=== PATIENT | female | born 1960 | race Caucasian/White ===

== ENCOUNTER 2019-06-08 13:52 | Emergency (ER) | payer MEDICAID ==
--- NOTE | 2019-06-08 15:03 | XRAY ---
Indication: Bilateral rib pain following recent Heimlich maneuver. Comparison: None 2 views of the left and right ribs demonstrates nondisplaced right 5/6 lateral and nondisplaced left 6/7 anterior lateral acute rib fractures. Elsewhere old right 3 rib fracture, old left 7 rib fracture, and osteopenia. No hemothorax or pneumothorax. Lungs are hyperinflated with right apical fibrosis/scarring. Heart is not enlarged. Impression: 1. Nondisplaced acute bilateral rib fractures as detailed. 2. Osteopenia and old bilateral rib fractures. 3. COPD and right apical fibrosis/scarring.
[2019-06-08] MEDS ORDERED: Lidoderm Patch 5% TOP STA (15:36)
[2019-06-08] MEDS ORDERED: ULTRAM 50 MG PO ONE (15:36)
[2019-06-08] MEDS ORDERED: ULTRAM 50 MG ONE (15:47)
[2019-06-08 16:14] VITALS: BP 138/85; PULSE 76; O2SAT 95
--- NOTE | 2019-06-08 16:30 | ERPHSYRPT ---
- History of Present Illness Source: patient Exam Limitations: no limitations Patient Subjective Stated Complaint: Patient took Aleve 2 PO at 1000 with no relief. Triage Nursing Assessment: Patient ambulated into ED and transferred self to bed. Patient A+O X 3. Patient's skin pink, warm and dry. Patient complains of right sided rib and back pain since Thursday. Patient states she choked on food on Thursday causing her son to do the heimleich on her. Patient's lungs clear a/p jaspreet. Patient denies SOB. Physician History: Pt is a 59 y/o female that her son had to perform the heimlich maneuver on her, because she chocked on some food. The maneuver was succesful, but pt developed severe b/l back pain in her ribs area. As OTC pain meds did not help, she came to the ER. Timing/Duration: day(s) Method of Injury: other (Heimlich Maneuver) Quality: sharp, stabbing Back Pain Location: T-spine (the ribs area) Severity of Pain-Max: moderate Severity of Pain-Current: moderate Modifying Factors: Improves With: pain medication Associated Symptoms: denies symptoms Previous symptoms: no prior history Allergies/Adverse Reactions: No Known Drug Allergies Allergy (Unverified 06/08/19 14:00) Hx Influenza Vaccination/Date Given: Yes Hx Pneumococcal Vaccination/Date Given: No Immunizations Up to Date: Yes - Review of Systems Constitutional: No Fever, No Chills Eyes: No Symptoms Ears, Nose, & Throat: No Symptoms Respiratory: No Cough, No Dyspnea Cardiac: No Chest Pain, No Edema, No Syncope Abdominal/Gastrointestinal: No Abdominal Pain, No Nausea, No Vomiting, No Diarrhea Genitourinary Symptoms: No Dysuria Musculoskeletal: Back Pain (at the ribs area.) Neurological: No Dizziness, No Focal Weakness, No Sensory Changes - Past Medical History Neurological History: No Pertinent History ENT History: No Pertinent History Cardiac History: Hypertension Respiratory History: COPD Endocrine Medical History: No Pertinent History Musculoskeletal History: No Pertinent History GI Medical History: No Pertinent History History: No Pertinent History Psycho-Social History: Anxiety Female Reproductive Disorders: No Pertinent History - Past Surgical History Past Surgical History: No Neuro Surgical History: No Pertinent History Cardiac: No Pertinent History Respiratory: No Pertinent History Gastrointestinal: No Pertinent History Genitourinary: No Pertinent History Musculoskeletal: No Pertinent History Female Surgical History: No Pertinent History - Social History Smoking Status: Current every day smoker How long have you smoked: years Exposure to second hand smoke: Yes Drug Use: none Patient Lives Alone: No - Female History Hx Last Menstrual Period: menopausal Hx Now: No - Nursing Vital Signs Nursing Vital Signs: Initial Vital Signs Temperature 98.4 F 06/08/19 14:02 Pulse Rate 73 06/08/19 14:02 Respiratory Rate 18 06/08/19 14:02 Blood Pressure 123/81 06/08/19 14:02 O2 Sat by Pulse Oximetry 98 06/08/19 14:02 Pain Scale Pain Intensity 8 - Physical Exam General Appearance: moderate distress Eye Exam: PERRL/EOMI, eyes nml inspection Ears, Nose, Throat Exam: normal ENT inspection Neck Exam: normal inspection, non-tender, supple, full range of motion, No meningismus, No midline tenderness Respiratory Exam: normal breath sounds, lungs clear, other (tenderness of the thoracic area, b/l ribs), No respiratory distress Cardiovascular Exam: regular rate/rhythm, normal heart sounds Gastrointestinal Exam: soft, No tenderness, No mass Back Exam: decreased range of motion, other (pt is taking shallow breaths, secondary to pain.) Extremity Exam: normal inspection, normal range of motion, No calf tenderness, No pedal edema Neurologic Exam: alert, oriented x 3, cooperative, director of market intelligence II-XII nml as tested, normal mood/affect, nml station & gait, sensation nml, No motor deficits SpO2: 95 - Course Nursing assessment & vital signs reviewed: Yes - Radiology Exams Ribs X-ray Interpretation: Reviewed by me (non displaced R 5/6 lateral and non displaced L 6/7 anterior rib fractures.) Ordered Tests: Active Orders 24 hr Category Date Time Status RIBS BILATERAL INCLUDE PA CXR Stat Exams 06/08/19 14:44 Completed Medication Summary Discontinued Medications Generic Name Dose Route Start Last Admin Trade Name Freq PRN Reason Stop Dose Admin Lidocaine 1 patch 06/08/19 15:36 06/08/19 15:49 Lidoderm Patch 5% TOP 06/08/19 15:37 1 patch ONCE STA Administration Tramadol HCl 100 mg 06/08/19 15:36 06/08/19 15:49 Ultram 50 Mg PO 06/08/19 15:37 100 mg STAT ONE Administration Tramadol HCl Confirm 06/08/19 15:47 Ultram 50 Mg Administered 06/08/19 15:48 Dose 100 mg .ROUTE .STK-MED ONE - Progress Progress: improved Progress Note: 06/08/19 16:33 Pt was seen and examined. I ordered for her Tramadol 100mg PO and Lidocaine patch that was cut and placed on painful areas. Pt is feeling better, and is cleared for d/c. Pt should f/u with her PCP, and make sure to take deep breaths , to prevent PNA. Will see patient in: office Counseled pt/family regarding: need for follow-up - Departure Departure Disposition: Home Clinical Impression: Rib fractures Condition: Stable Critical Care Time: No Referrals: [facility], [facility] [Primary Care Provider] - Instructions: Bruised Rib Additional Instructions: Take meds as ordered. F/U with PCP, and take deep breaths. Prescriptions: Lidocaine HCl 5% Patch [Lidoderm Patch 5%] 1 patch TOP DAILY #30 patch Tramadol HCl 50 - 100 mg PO Q4-6HPRN PRN #30 tablet PRN Reason: Pain
== END 2019-06-08 16:47 | disposition home or self-care (01) ==
LOC: ED 13:52
DX: S22.39XA Fracture of one rib, unspecified side, initial encounter for closed fracture (principal); X50.3XXA Overexertion from repetitive movements, initial encounter; M54.9 Dorsalgia, unspecified; I10 Essential (primary) hypertension; J44.9 Chronic obstructive pulmonary disease, unspecified; F41.9 Anxiety disorder, unspecified
CPT/HCPCS: 71111; 99283; A9270-GY

== ENCOUNTER 2021-05-14 05:40 | Emergency (ER) | payer MEDICAID ==
--- NOTE | 2021-05-14 06:10 | ERPHSYRPT ---
<DURGA JETT SravaniKatherine - Last Filed: 05/14/21 06:57> - History of Present Illness Time Seen by Provider: 05/14/21 06:00 Historian: patient, family Exam Limitations: no limitations Patient Subjective Stated Complaint: pt c/o chest pain x3 days off and on Triage Nursing Assessment: pt c/o chest pain x3 days, intermittently. Pt c/o pain under lt breast, across chest into neck, down left arm and into back. States, "It feels like something heavy on my chest and I'm sob". Pt left work Thursday early due to not feeling good and stayed in bed and rested most of Thursday. Pt states, "I was unable to sleep last night, couldn't get comfortable". Physician History: This is a 61-year-old white female with a history of anxiety and hypertension who presents with left-sided chest pain that radiates up into her left neck and down her left arm and into her left back. Symptoms have been present intermi ttently for 3 days. Patient did take 1 baby aspirin prior to arrival. She is never been diagnosed with any cardiac problems. However there has been some concern per patient. Patient continues to smoke cigarettes daily. Does complain of some shortness of breath and a cough. Patient had symptoms like this in the past and she was diagnosed with a pneumonia per her report. She denies fevers and chills. She denies abdominal pain. Timing/Duration: day(s) (3), intermittent, worse Activities at Onset: none Quality: pressure Location: other (Left chest under her breast) Chest Pain Radiation: neck, arm, back Severity of Pain-Max: moderate Modifying Factors: Improves With: coughing (Mild) Associated Symptoms: shortness of breath, cough, No chills, No fever, No weakness Nitro Today/Relief: no nitro taken today Aspirin Treatment Today: 81 mg x 1, provided at home Allergies/Adverse Reactions: No Known Drug Allergies Allergy (Verified 05/14/21 05:58) Home Medications: Amlodipine Besylate 10 mg PO DAILY 05/14/21 [History] Aspirin 81 gm Chew [Baby Aspirin 81 mg Chew] 81 mg PO DAILY 05/14/21 [History] OXcarbazepine [Trileptal] 450 mg PO BID 05/14/21 [History] clonazePAM [Klonopin] 0.5 mg PO TID PRN PRN 05/14/21 [History] lisinopriL [Lisinopril] 10 mg PO DAILY 05/14/21 [History] Hx Tetanus, Diphtheria Vaccination/Date Given: Yes Hx Influenza Vaccination/Date Given: Yes Hx Pneumococcal Vaccination/Date Given: No Immunizations Up to Date: Yes Travel Risk - International Travel Have you traveled outside of the country in past 3 weeks: No - Coronavirus Screening Are you exhibiting any of the following symptoms?: No Close contact with a COVID-19 positive Pt in past 14-21 Days: No - Vaccine Status Have you recieved a Covid-19 vaccination: No - Review of Systems Constitutional: No Symptoms Eyes: No Symptoms Ears, Nose, & Throat: No Symptoms Respiratory: Cough, Dyspnea Cardiac: Chest Pain Abdominal/Gastrointestinal: No Symptoms Genitourinary Symptoms: No Symptoms Musculoskeletal: No Symptoms Skin: No Symptoms Neurological: No Symptoms Psychological: No Symptoms Endocrine: No Symptoms Hematologic/Lymphatic: No Symptoms Immunological/Allergic: No Symptoms All Other Systems: Reviewed and Negative - Past Medical History Pertinent Past Medical History: Yes Neurological History: No Pertinent History ENT History: No Pertinent History Cardiac History: Hypertension Respiratory History: COPD, Pneumonia Endocrine Medical History: No Pertinent History Musculoskeletal History: No Pertinent History GI Medical History: No Pertinent History History: No Pertinent History Psycho-Social History: Anxiety, Depression Female Reproductive Disorders: No Pertinent History - Past Surgical History Past Surgical History: No Neuro Surgical History: No Pertinent History Cardiac: No Pertinent History Respiratory: No Pertinent History Gastrointestinal: No Pertinent History Genitourinary: No Pertinent History Musculoskeletal: No Pertinent History Female Surgical History: No Pertinent History - Social History Smoking Status: Current every day smoker How long have you smoked: 48 yrs Exposure to second hand smoke: Yes Drug Use: none Patient Lives Alone: No - Female History Hx Now: No - Physical Exam General Appearance: no apparent distress, alert, anxiety Eye Exam: PERRL/EOMI, eyes nml inspection Ears, Nose, Throat Exam: normal ENT inspection, moist mucous membranes Neck Exam: normal inspection, non-tender, supple, full range of motion Respiratory Exam: normal breath sounds, lungs clear, airway intact, No chest tenderness, No respiratory distress Cardiovascular Exam: regular rate/rhythm, normal heart sounds, normal peripheral pulses Gastrointestinal/Abdomen Exam: soft, normal bowel sounds, No tenderness Pelvic Exam: not done Rectal Exam: not done Back Exam: normal inspection, normal range of motion, No CVA tenderness, No vertebral tenderness Extremity Exam: normal inspection, normal range of motion, pelvis stable Neurologic Exam: alert, oriented x 3, cooperative, lehr cutter II-XII nml as tested, normal mood/affect, nml cerebellar function, nml station & gait, sensation nml Skin Exam: normal color, warm, dry Lymphatic Exam: No adenopathy SpO2 Interpretation: normal SpO2: 95 O2 Delivery: Room Air - Course Nursing assessment & vital signs reviewed: Yes EKG Interpreted by Me: RATE (79), Sinus Rhythm, NORMAL AXIS, NORMAL INTERVALS, NORMAL QRS, Other (A few PVCs. No acute ischemic changes. No comparison EKG a vailable) - Progress Progress: improved Air Movement: good Progress Note: 05/14/21 06:57 Transfer of care to Dr. Gerson Orantes at shift change. I reviewed the patient history, condition, pending labs and x-rays to be followed up on. He accepts the patient for further management and final disposition. Blood Culture(s) Obtained: No Antibiotics given: No Counseled pt/family regarding: lab results, diagnosis, need for follow-up, rad results - Departure Departure Disposition: Home Clinical Impression: Chest pain, Shortness of breath, Hilar lymphadenopathy, COPD exacerbation, ACS (acute coronary syndrome), Elevated d-dimer, Leukocytosis, Hypoxia, Hyperglycemia, Hyponatremia Condition: Stable Critical Care Time: No Referrals: [facility] [Primary Care Provider] - Instructions: Chronic Obstructive Pulmonary Disease <GERSON ORANTES - Last Filed: 05/14/21 11:03> - Nursing Vital Signs Nursing Vital Signs: Initial Vital Signs Temperature 97.7 F 05/14/21 05:41 Pulse Rate 76 05/14/21 05:41 Respiratory Rate 22 05/14/21 05:41 Blood Pressure 184/95 05/14/21 05:41 O2 Sat by Pulse Oximetry 95 05/14/21 05:41 Pain Scale Pain Intensity 2 - Radiology Exams Chest X-ray Interpretation: Teleradiologist Report (Nonacute hyperinflated lungs) - CT Exams Chest CT Interpretation: Tele-radiologist Report (Negative pulmonary embolism. No acute cardiopulmonary abnormalities. Incidental pulmonary emphysema, apical subpleural cystic changes, and right middle lobe pleural-parenchymal scarring/t hickening.) Ordered Tests: Active Orders 24 hr Category Date Time Status EKG-ER Only STAT Care 05/14/21 06:25 Active IV Insertion STAT Care 05/14/21 06:25 Active Pulse Oximetry (ED) STAT Care 05/14/21 06:25 Active CHEST 1 VIEW (PORTABLE) Stat Exams 05/14/21 06:26 Completed CHEST WITH CONTRAST [CT] Stat Exams 05/14/21 06:56 Completed BLOOD CULTURE Stat Lab 05/14/21 09:32 Received CBC W DIFF Stat Lab 05/14/21 05:45 Completed CMP Stat Lab 05/14/21 05:45 Completed D-DIMER QUANTITATIVE Stat Lab 05/14/21 05:45 Completed NT PRO BNP Stat Lab 05/14/21 05:45 Completed PROTIME WITH INR Stat Lab 05/14/21 05:45 Completed TROPONIN Q3H Lab 05/14/21 05:45 Completed TROPONIN Q3H Lab 05/14/21 09:25 Completed TROPONIN Q3H Lab 05/14/21 12:30 Ordered TROPONIN Q3H Lab 05/14/21 15:30 Ordered TROPONIN Q3H Lab 05/14/21 18:30 Ordered Respiratory Therapy Assessment DAILY RT 05/14/21 09:39 Active Transfer Order Routine Transfer 05/14/21 Ordered Medication Summary Discontinued Medications Generic Name Dose Route Start Last Admin Trade Name Freq PRN Reason Stop Dose Admin Albuterol/Ipratropium 3 ml 05/14/21 09:12 05/14/21 09:37 Duoneb 0.5-3 Mg/3 Ml Neb IH 05/14/21 09:13 3 ml STAT ONE Administration Albuterol/Ipratropium Confirm 05/14/21 09:25 Duoneb 0.5-3 Mg/3 Ml Neb Administered 05/14/21 09:26 Dose 3 ml IH .STK-MED ONE Aspirin 243 mg 05/14/21 06:25 05/14/21 06:34 Baby Aspirin 81 Mg Chew PO 05/14/21 06:26 243 mg STAT ONE Administration Ceftriaxone Sodium/Dextrose 2 g in 50 mls @ 100 mls/hr 05/14/21 09:19 05/14/21 10:11 Rocephin 2 Gm-D5w 50ml Bag IV 05/14/21 09:48 Infused STAT STA Infusion Azithromycin 500 mg in 250 mls @ 250 mls/hr 05/14/21 09:20 05/14/21 10:36 Zithromax 500 Mg/ 250 Ml Nacl Premix IV 05/14/21 10:19 Infused STAT STA Infusion Ceftriaxone Sodium/Dextrose Confirm 05/14/21 09:21 Rocephin 2 Gm-D5w 50ml Bag Administered 05/14/21 09:22 Dose 2 g in 50 mls @ ud IV .STK-MED ONE Azithromycin Confirm 05/14/21 09:27 Zithromax 500 Mg/ 250 Ml Nacl Premix Administered 05/14/21 09:28 Dose 500 mg in 250 mls @ ud IV .STK-MED ONE Methylprednisolone Sodium Succinate 125 mg 05/14/21 09:12 05/14/21 09:23 Solu-Medrol 125 Mg IV 05/14/21 09:13 125 mg STAT ONE Administration Methylprednisolone Sodium Succinate Confirm 05/14/21 09:21 Solu-Medrol 125 Mg Administered 05/14/21 09:22 Dose 125 mg .ROUTE .STK-MED ONE Morphine Sulfate 2 mg 05/14/21 06:25 05/14/21 06:36 Morphine Sulfate 2 Mg Inj IV 05/14/21 06:26 2 mg STAT ONE Administration Morphine Sulfate Confirm 05/14/21 06:36 Morphine Sulfate 2 Mg Inj Administered 05/14/21 06:37 Dose 2 mg .ROUTE .STK-MED ONE Nitroglycerin 0.4 mg 05/14/21 06:25 05/14/21 06:34 Nitrostat 0.4 Mg (Ed) SL 05/14/21 06:26 0.4 mg STAT ONE Administration Ondansetron HCl 4 mg 05/14/21 06:25 05/14/21 06:36 Zofran 4 Mg/2 Ml Vial IV 05/14/21 06:26 4 mg STAT ONE Administration Ondansetron HCl Confirm 05/14/21 06:35 Zofran 4 Mg/2 Ml Vial Administered 05/14/21 06:36 Dose 4 mg .ROUTE .STK-MED ONE Lab/Rad Data: Laboratory Result Diagrams 05/14/21 05:45 05/14/21 05:45 Laboratory Results 05/14/21 05/14/21 05/14/21 Range/Units 09:25 09:19 05:45 WBC (4.0-10.5) K/mm3 RBC (4.1-5.4) M/mm3 Hgb (12.0-16.0) gm/dl Hct (35-47) % MCV (78-100) fl MCH (26-32) pg MCHC (32-36) g/dl RDW (11.5-14.0) % Plt Count (150-450) K/mm3 MPV (7.5-11.0) fl Gran % (36.0-66.0) % Eos # (Auto) (0-0.5) Absolute Lymphs (auto) (1.0-4.6) Absolute Monos (auto) (0.0-1.3) Lymphocytes % (24.0-44.0) % Monocytes % (0.0-12.0) % Eosinophils % (0.00-5.0) % Basophils % (0.0-0.4) % Absolute Granulocytes (1.4-6.9) Basophils # (0-0.4) PT (9.4-12.5) SECONDS INR (0.8-3.0) D-Dimer (215-500) ng/mL Sodium (137-145) mmol/L Potassium (3.5-5.1) mmol/L Chloride (98-107) mmol/L Carbon Dioxide (22-30) mmol/L Anion Gap (5-15) MEQ/L BUN (7-17) mg/dL Creatinine (0.52-1.04) mg/dL Estimated GFR ML/MIN Glucose (74-106) mg/dL Calcium (8.4-10.2) mg/dL Total Bilirubin (0.2-1.3) mg/dL AST (14-36) U/L ALT (0-35) U/L Alkaline Phosphatase (38-126) U/L Troponin I < 0.012 < 0.012 (0.000-0.034) ng/mL NT-Pro-B Natriuret Pep (0-900) pg/mL Serum Total Protein (6.3-8.2) g/dL Albumin (3.5-5.0) g/dL SARS-CoV-2 (PCR) NEGATIVE (NEGATIVE) 05/14/21 05/14/21 05/14/21 Range/Units 05:45 05:45 05:45 WBC 10.6 H (4.0-10.5) K/mm3 RBC 5.14 (4.1-5.4) M/mm3 Hgb 15.9 (12.0-16.0) gm/dl Hct 48.3 H (35-47) % MCV 94.0 (78-100) fl MCH 30.9 (26-32) pg MCHC 32.9 (32-36) g/dl RDW 13.1 (11.5-14.0) % Plt Count 344 (150-450) K/mm3 MPV 9.2 (7.5-11.0) fl Gran % 70.4 H (36.0-66.0) % Eos # (Auto) 0.05 (0-0.5) Absolute Lymphs (auto) 2.44 (1.0-4.6) Absolute Monos (auto) 0.61 (0.0-1.3) Lymphocytes % 23.0 L (24.0-44.0) % Monocytes % 5.8 (0.0-12.0) % Eosinophils % 0.5 (0.00-5.0) % Basophils % 0.3 (0.0-0.4) % Absolute Granulocytes 7.46 H (1.4-6.9) Basophils # 0.03 (0-0.4) PT 11.8 (9.4-12.5) SECONDS INR 1.00 (0.8-3.0) D-Dimer 1053 H* (215-500) ng/mL Sodium 131 L (137-145) mmol/L Potassium 3.9 (3.5-5.1) mmol/L Chloride 93 L (98-107) mmol/L Carbon Dioxide 29 (22-30) mmol/L Anion Gap 13.2 (5-15) MEQ/L BUN 12 (7-17) mg/dL Creatinine 0.58 (0.52-1.04) mg/dL Estimated GFR > 60.0 ML/MIN Glucose 176 H (74-106) mg/dL Calcium 10.0 (8.4-10.2) mg/dL Total Bilirubin 0.30 (0.2-1.3) mg/dL AST 26 (14-36) U/L ALT 17 (0-35) U/L Alkaline Phosphatase 93 (38-126) U/L Troponin I (0.000-0.034) ng/mL NT-Pro-B Natriuret Pep 196 (0-900) pg/mL Serum Total Protein 7.8 (6.3-8.2) g/dL Albumin 4.5 (3.5-5.0) g/dL SARS-CoV-2 (PCR) (NEGATIVE) - Progress Progress Note: Patient is a 61-year-old female presents to our ED with complaints of chest pain x3 days. Patient initially seen by Dr. Jett. Patient endorsed to Dr. Orantes at approximately 7 AM. Patient assessed. Patient appears to be resting comfortably. Vitals stable. Physical exam essentially unremarkable. Work-up revealed elevated D-dimer. CTA chest negative for PE. Patient has a history of COPD. RN observed hypoxia while walking to bathroom. Patient states she feels much better at this time. No chest pain while resting. We will admit for acute coronary syndrome work-up as well as treatment for COPD exacerbation. Dr. Carrillo is our no doc for today. He accepts admission to observation. Covid test pending. Initial troponin negative. Blood cultures added. Duo nebulizer treatment ordered. 2 g Rocephin and 500 mg of azithromycin ordered as well. Plan of care discussed with patient. She agrees to admission at [facility] for further evaluation and treatment. 05/14/21 09:22 05/14/21 11:02 Patient reassessed. She feels well. Patient tolerated her breakfast this morning in the ED. Case discussed with who accepts admission to observation. Covid test negative. Patient agrees to admission at [facility] for further evaluation and treatment. Abdomen orders placed. Patient voices no other complaints concerns at this time.
[2021-05-14] MEDS ORDERED: Zofran 4 MG/2 ML VIAL IV ONE (06:25)
[2021-05-14] MEDS ORDERED: BABY ASPIRIN 81 MG CHEW PO ONE (06:25)
[2021-05-14] MEDS ORDERED: MORPHINE SULFATE 2 MG INJ IV ONE (06:25)
[2021-05-14] MEDS ORDERED: Nitrostat 0.4 MG (ED) SL ONE (06:25)
[2021-05-14] MEDS ORDERED: Zofran 4 MG/2 ML VIAL ONE (06:35)
[2021-05-14] MEDS ORDERED: MORPHINE SULFATE 2 MG INJ ONE (06:36)
[2021-05-14 06:40] LABS: Absolute Neutrophil Ct (ANC) 7.46 (1.4-6.9); BASOPHIL % 0.3 % (0.0-0.4); Basophil (Absolute #) 0.03 (0-0.4); Eosinophil % 0.5 % (0.00-5.0); Eosinophil (Absolute #) 0.05 (0-0.5); Hematocrit 48.3 % (35-47); Hemoglobin 15.9 gm/dl (12.0-16.0); Lymphocyte (Absolute #) 2.44 (1.0-4.6); Mean Corpuscular Hemoglobin 30.9 pg (26-32); Mean Corpuscular Hgb Concent. 32.9 g/dl (32-36); Mean Platelet Volume 9.2 fl (7.5-11.0); Monocyte (Absolute #) 0.61 (0.0-1.3); Monocytes % 5.8 % (0.0-12.0); Neutrophil % 70.4 % (36.0-66.0); Platelet Count 344 K/mm3 (150-450); Red Blood Count 5.14 M/mm3 (4.1-5.4); Red Cell Distribution Width 13.1 % (11.5-14.0); White Blood Count 10.6 K/mm3 (4.0-10.5)
[2021-05-14 06:46] LABS: PROTIME 11.8 SECONDS (9.4-12.5)
[2021-05-14 07:05] LABS: ALBUMIN 4.5 g/dL (3.5-5.0); ALKALINE PHOSPHATASE 93 U/L (38-126); ANION GAP 13.2 MEQ/L (5-15); BLOOD UREA NITROGEN 12 mg/dL (7-17); CHLORIDE 93 mmol/L (98-107); Carbon Dioxide 29 mmol/L (22-30); Creatinine 1 0.58 mg/dL (0.52-1.04); EST GLOMERULAR FILTRATION RATE > 60.0 ML/MIN; Glucose 176 mg/dL (74-106); NT PRO BNP 196 pg/mL (0-900); Potassium 3.9 mmol/L (3.5-5.1); SGOT/AST 26 U/L (14-36); SGPT/ALT 17 U/L (0-35); SODIUM 131 mmol/L (137-145); Total Protein 7.8 g/dL (6.3-8.2)
--- NOTE | 2021-05-14 09:00 | XRAY ---
Indication: Chest pain. Comparison: None Portable chest hyperinflated and clear. Heart and mediastinal structures within normal limits. Bony thorax intact. Impression: Nonacute hyperinflated chest.
--- NOTE | 2021-05-14 09:00 | XRAY ---
Indication: Left-sided chest pain, short of breath, and elevated d-dimer. COPD. Multiple contiguous axial images obtained through the chest using 100 cc Isovue 370 contrast and PE protocol. Comparison: None There is good opacification of the pulmonary arteries to include the lobar and segmental branches. No pulmonary embolus. Heart is not enlarged. Aorta is normal in course and caliber. Small 1.1 x 1.7 cm right suprahilar lymph node. No pathologic mediastinal/hilar lymphadenopathy. Lungs demonstrates diffuse pulmonary emphysema with biapical subpleural cystic changes. Anterior right middle lobe demonstrates focal pleural parenchymal scarring/thickening. No suspicious pulmonary mass, infiltrate, or effusion. Bony thorax intact. Limited upper abdomen unremarkable. Impression: 1. Negative pulmonary embolus. No acute cardiopulmonary abnormalities. 2. Incidental pulmonary emphysema, biapical subpleural cystic changes, and right middle lobe pleural parenchymal scarring/thickening.
[2021-05-14] MEDS ORDERED: DUONEB 0.5-3 MG/3 ml Neb IH ONE ×2 (09:12→09:25)
[2021-05-14] MEDS ORDERED: solu-MEDROL 125 MG IV ONE (09:12)
[2021-05-14] MEDS ORDERED: ROCEPHIN 2 Gm-D5w 50ML BAG** 2 G/50 ML IVPB IV STA (09:19)
[2021-05-14] MEDS ORDERED: Zithromax 500 MG/ 250 ML NaCl Premix 500 MG/250 ML IVPB IV STA (09:20)
[2021-05-14] MEDS ORDERED: ROCEPHIN 2 Gm-D5w 50ML BAG** 2 G/50 ML IVPB IV ONE (09:21)
[2021-05-14] MEDS ORDERED: solu-MEDROL 125 MG ONE (09:21)
[2021-05-14] MEDS ORDERED: Zithromax 500 MG/ 250 ML NaCl Premix 500 MG/250 ML IVPB IV ONE (09:27)
[2021-05-14] MEDS ORDERED: MILK OF MAGNESIA 30 ML PO PRN (12:02)
[2021-05-14] MEDS ORDERED: TYLENOL 325 MG PO PRN (12:02)
[2021-05-14] MEDS ORDERED: Senokot-S Tablet PO PRN (12:02)
[2021-05-14] MEDS ORDERED: MAALOX ES 30 ML UNIT DOSE PO PRN (12:02)
[2021-05-14] MEDS ORDERED: PYRIDOXINE PO PRN (14:34)
[2021-05-14] MEDS ORDERED: MELATONIN PO PRN (14:34)
[2021-05-14] MEDS ORDERED: MEDICATION INTERVENTION MC PRN (14:42)
[2021-05-14] MEDS: PROVENTIL 2.5 MG/3 ML NEB IH SCH ×3 (15:15→22:20)
[2021-05-14] MEDS: solu-MEDROL 125 MG IV SCH ×2 (17:18→23:31)
--- NOTE | 2021-05-14 18:47 | PCM.HP ---
History of Present Illness - Chief Complaint Chief Complaint: chest pain for 1 day History of Present Illness: is a 61 year old female.with a history of anxiety and hypertension who presents with left-sided chest pain that radiates up into her left neck and down her left arm and into her left back. Symptoms have been present intermittently for 3 days. Patient did take 1 baby aspirin prior to arrival. She is never been diagnosed with any cardiac problems. However there has been some concern per patient. Patient continues to smoke cigarettes daily. Does complain of some shortness of breath and a cough. Patient had symptoms like this in the past and she was diagnosed with a pneumonia per her report. She denies fevers and chills. She denies abdominal pain. Timing/Duration: day(s) (3), intermittent, worse Activities at Onset: none Quality: pressure Location: other (Left chest under her breast) Chest Pain Radiation: neck, arm, back Severity of Pain-Max: moderate Modifying Factors: Improves With: coughing (Mild) Associated Symptoms: shortness of breath, cough, No chills, No fever, No weakness Nitro Today/Relief: no nitro taken today Aspirin Treatment Today: 81 mg x 1, provided at home - Review of Systems Constitutional: No Fever, No Chills Eyes: No Symptoms Ears, Nose, & Throat: No Symptoms Respiratory: No Cough, No Short Of Breath Cardiac: Chest Pain, No Edema, No Syncope Abdominal/Gastrointestinal: No Abdominal Pain, No Nausea, No Vomiting, No Diarrhea Genitourinary Symptoms: No Dysuria Musculoskeletal: No Back Pain, No Neck Pain Skin: No Rash Neurological: No Dizziness, No Focal Weakness, No Sensory Changes Psychological: No Symptoms Endocrine: No Symptoms Hematologic/Lymphatic: No Symptoms Immunological/Allergic: No Symptoms Medications & Allergies Home Medications: Home Medication List Amlodipine Besylate 10 mg PO DAILY 05/14/21 [History Confirmed 05/14/21] Aspirin 81 gm Chew [Baby Aspirin 81 mg Chew] 81 mg PO DAILY 05/14/21 [History Confirmed 05/14/21] Melatonin/Pyridoxine [Melatonin 5 mg Tablet] 5 mg PO HS PRN PRN 05/14/21 [History Confirmed 05/14/21] OXcarbazepine [Trileptal] 450 mg PO BID 05/14/21 [History Confirmed 05/14/21] clonazePAM [Klonopin] 0.5 mg PO TID PRN PRN 05/14/21 [History Confirmed 05/14/21] lisinopriL [Lisinopril] 10 mg PO DAILY 05/14/21 [History Confirmed 05/14/21] Allergies/Adverse Reactions: Allergies Allergy/AdvReac Type Severity Reaction Status Date / Time No Known Drug Allergies Allergy Verified 05/14/21 05:58 - Past Medical History Past Medical History: Yes Neurological History: No Pertinent History ENT History: No Pertinent History Cardiac History: Hypertension Respiratory History: COPD, Pneumonia Endocrine Medical History: No Pertinent History Musculoskelatal History: No Pertinent History GI Medical History: No Pertinent History History: No Pertinent History Pyscho-Social History: Anxiety, Depression Reproductive Disorders: No Pertinent History - Female History Are you now?: No - Past Surgical History Past Surgical History: No Neuro Surgical History: No Pertinent History Cardiac History: No Pertinent History Respiratory Surgery: No Pertinent History GI Surgical History: No Pertinent History Genitourinary Surgical Hx: No Pertinent History Musculskeletal Surgical Hx: No Pertinent History Female Surgical History: No Pertinent History - Social History Smoking Status: Current every day smoker How long have you smoked: 40+ yrs Exposure to second hand smoke: No Alcohol: None Drug Use: none - Physical Exam Vital Signs: Vital Signs - 24 hr Temp Pulse Pulse Resp BP Pulse Ox 05/14/21 17:08 95 05/14/21 16:00 98.9 F 72 18 124/65 93 L 05/14/21 15:43 76 20 05/14/21 12:44 97.9 F 78 21 144/78 95 05/14/21 11:04 73 21 161/89 95 05/14/21 10:29 76 16 161/89 93 L 05/14/21 09:42 67 22 95 05/14/21 09:11 70 19 130/77 96 05/14/21 07:39 66 14 161/91 99 05/14/21 07:10 65 18 143/88 95 05/14/21 06:58 95 05/14/21 06:41 74 18 162/99 93 L 05/14/21 06:28 95 05/14/21 05:45 76 05/14/21 05:41 97.7 F 76 22 184/95 95 Oxygen-Last 24 hours Oxygen Flowrate (L/min)-RT 2 General Appearance: no apparent distress, alert Neurologic Exam: alert, oriented x 3, cooperative, normal mood/affect, nml cerebellar function, nml station & gait, sensation nml, No motor deficits Eye Exam: PERRL/EOMI, eyes nml inspection Ears, Nose, Throat Exam: normal ENT inspection, TMs normal, pharynx normal, moist mucous membranes Neck Exam: normal inspection, non-tender, supple, full range of motion Respiratory Exam: normal breath sounds, lungs clear, No respiratory distress Cardiovascular Exam: regular rate/rhythm, normal heart sounds, normal peripheral pulses Gastrointestinal/Abdomen Exam: soft, normal bowel sounds, No tenderness, No mass Back Exam: normal inspection, normal range of motion, No CVA tenderness, No vertebral tenderness Extremity Exam: normal inspection, normal range of motion, pelvis stable Skin Exam: normal color, warm, dry, No rash Lymphatic Exam: No adenopathy Results - Labs Lab/Micro Results: Lab Results-Last 24 Hours 05/14/21 05/14/21 05/14/21 Range/Units 05:45 05:45 05:45 WBC 10.6 H (4.0-10.5) K/mm3 RBC 5.14 (4.1-5.4) M/mm3 Hgb 15.9 (12.0-16.0) gm/dl Hct 48.3 H (35-47) % MCV 94.0 (78-100) fl MCH 30.9 (26-32) pg MCHC 32.9 (32-36) g/dl RDW 13.1 (11.5-14.0) % Plt Count 344 (150-450) K/mm3 MPV 9.2 (7.5-11.0) fl Gran % 70.4 H (36.0-66.0) % Eos # (Auto) 0.05 (0-0.5) Absolute Lymphs (auto) 2.44 (1.0-4.6) Absolute Monos (auto) 0.61 (0.0-1.3) Lymphocytes % 23.0 L (24.0-44.0) % Monocytes % 5.8 (0.0-12.0) % Eosinophils % 0.5 (0.00-5.0) % Basophils % 0.3 (0.0-0.4) % Absolute Granulocytes 7.46 H (1.4-6.9) Basophils # 0.03 (0-0.4) PT 11.8 (9.4-12.5) SECONDS INR 1.00 (0.8-3.0) D-Dimer 1053 H* (215-500) ng/mL Sodium 131 L (137-145) mmol/L Potassium 3.9 (3.5-5.1) mmol/L Chloride 93 L (98-107) mmol/L Carbon Dioxide 29 (22-30) mmol/L Anion Gap 13.2 (5-15) MEQ/L BUN 12 (7-17) mg/dL Creatinine 0.58 (0.52-1.04) mg/dL Estimated GFR > 60.0 ML/MIN Glucose 176 H (74-106) mg/dL Calcium 10.0 (8.4-10.2) mg/dL Total Bilirubin 0.30 (0.2-1.3) mg/dL AST 26 (14-36) U/L ALT 17 (0-35) U/L Alkaline Phosphatase 93 (38-126) U/L Troponin I (0.000-0.034) ng/mL NT-Pro-B Natriuret Pep 196 (0-900) pg/mL Serum Total Protein 7.8 (6.3-8.2) g/dL Albumin 4.5 (3.5-5.0) g/dL SARS-CoV-2 (PCR) (NEGATIVE) 05/14/21 05/14/21 05/14/21 Range/Units 05:45 09:19 09:25 WBC (4.0-10.5) K/mm3 RBC (4.1-5.4) M/mm3 Hgb (12.0-16.0) gm/dl Hct (35-47) % MCV (78-100) fl MCH (26-32) pg MCHC (32-36) g/dl RDW (11.5-14.0) % Plt Count (150-450) K/mm3 MPV (7.5-11.0) fl Gran % (36.0-66.0) % Eos # (Auto) (0-0.5) Absolute Lymphs (auto) (1.0-4.6) Absolute Monos (auto) (0.0-1.3) Lymphocytes % (24.0-44.0) % Monocytes % (0.0-12.0) % Eosinophils % (0.00-5.0) % Basophils % (0.0-0.4) % Absolute Granulocytes (1.4-6.9) Basophils # (0-0.4) PT (9.4-12.5) SECONDS INR (0.8-3.0) D-Dimer (215-500) ng/mL Sodium (137-145) mmol/L Potassium (3.5-5.1) mmol/L Chloride (98-107) mmol/L Carbon Dioxide (22-30) mmol/L Anion Gap (5-15) MEQ/L BUN (7-17) mg/dL Creatinine (0.52-1.04) mg/dL Estimated GFR ML/MIN Glucose (74-106) mg/dL Calcium (8.4-10.2) mg/dL Total Bilirubin (0.2-1.3) mg/dL AST (14-36) U/L ALT (0-35) U/L Alkaline Phosphatase (38-126) U/L Troponin I < 0.012 < 0.012 (0.000-0.034) ng/mL NT-Pro-B Natriuret Pep (0-900) pg/mL Serum Total Protein (6.3-8.2) g/dL Albumin (3.5-5.0) g/dL SARS-CoV-2 (PCR) NEGATIVE (NEGATIVE) 05/14/21 05/14/21 Range/Units 12:22 15:26 WBC (4.0-10.5) K/mm3 RBC (4.1-5.4) M/mm3 Hgb (12.0-16.0) gm/dl Hct (35-47) % MCV (78-100) fl MCH (26-32) pg MCHC (32-36) g/dl RDW (11.5-14.0) % Plt Count (150-450) K/mm3 MPV (7.5-11.0) fl Gran % (36.0-66.0) % Eos # (Auto) (0-0.5) Absolute Lymphs (auto) (1.0-4.6) Absolute Monos (auto) (0.0-1.3) Lymphocytes % (24.0-44.0) % Monocytes % (0.0-12.0) % Eosinophils % (0.00-5.0) % Basophils % (0.0-0.4) % Absolute Granulocytes (1.4-6.9) Basophils # (0-0.4) PT (9.4-12.5) SECONDS INR (0.8-3.0) D-Dimer (215-500) ng/mL Sodium (137-145) mmol/L Potassium (3.5-5.1) mmol/L Chloride (98-107) mmol/L Carbon Dioxide (22-30) mmol/L Anion Gap (5-15) MEQ/L BUN (7-17) mg/dL Creatinine (0.52-1.04) mg/dL Estimated GFR ML/MIN Glucose (74-106) mg/dL Calcium (8.4-10.2) mg/dL Total Bilirubin (0.2-1.3) mg/dL AST (14-36) U/L ALT (0-35) U/L Alkaline Phosphatase (38-126) U/L Troponin I < 0.012 < 0.012 (0.000-0.034) ng/mL NT-Pro-B Natriuret Pep (0-900) pg/mL Serum Total Protein (6.3-8.2) g/dL Albumin (3.5-5.0) g/dL SARS-CoV-2 (PCR) (NEGATIVE) - Radiology Impressions Radiology Exams & Impressions: Radiology Procedures Category Date Time Status CHEST 1 VIEW (PORTABLE) Stat Exams 05/14/21 06:26 Completed CHEST WITH CONTRAST [CT] Stat Exams 05/14/21 06:56 Completed - Other Procedures and Tests Respiratory Therapy 05/14/21 15:42 Respiratory Therapy Assessment DAILY 05/14/21 17:06 Oxygen NASAL CANNULA 2 lpm 05/15/21 05:00 EKG ONCE 05/16/21 05:00 EKG ONCE 05/17/21 05:00 EKG ONCE Assessment/Plan (1) ACS (acute coronary syndrome) Current Visit: Yes Status: Acute Assessment & Plan: Chief Complaint Diagnosis ACS, Chest pain Allergies Allergy/AdvReac Type Severity Reaction Status Date / Time No Known Drug Allergies Allergy Verified 05/14/21 05:58 Vital Signs (Last 24 hours) Temp Pulse Pulse Resp BP Pulse Ox 05/14/21 17:08 95 05/14/21 16:00 98.9 F 72 18 124/65 93 L 05/14/21 15:43 76 20 05/14/21 12:44 97.9 F 78 21 144/78 95 05/14/21 11:04 73 21 161/89 95 05/14/21 10:29 76 16 161/89 93 L 05/14/21 09:42 67 22 95 05/14/21 09:11 70 19 130/77 96 05/14/21 07:39 66 14 161/91 99 05/14/21 07:10 65 18 143/88 95 05/14/21 06:58 95 05/14/21 06:41 74 18 162/99 93 L 05/14/21 06:28 95 05/14/21 05:45 76 05/14/21 05:41 97.7 F 76 22 184/95 95 Home Medications Medication Instructions Recorded Confirmed Last Taken Type Amlodipine Besylate 10 mg PO DAILY 05/14/21 05/14/21 05/14/21 05:00 History Aspirin 81 gm Chew [Baby 81 mg PO DAILY 05/14/21 05/14/21 05/14/21 05:00 History Aspirin 81 mg Chew] Melatonin/Pyridoxine [Melatonin 5 5 mg PO HS PRN PRN 05/14/21 05/14/21 Unknown History mg Tablet] OXcarbazepine [Trileptal] 450 mg PO BID 05/14/21 05/14/21 05/14/21 05:00 History clonazePAM [Klonopin] 0.5 mg PO TID PRN PRN 05/14/21 05/14/21 05/10/21 06:00 History lisinopriL [Lisinopril] 10 mg PO DAILY 05/14/21 05/14/21 05/14/21 05:00 History Current Medications Generic Name Dose Route Start Last Admin Trade Name Freq PRN Reason Stop Dose Admin Acetaminophen 650 mg 05/14/21 12:02 Tylenol 325 Mg PO 06/13/21 12:01 Q4H PRN PRN PAIN AND/OR FEVER Al Hydrox/Mg Hydrox/Simethicone 30 ml 05/14/21 12:02 Maalox Es 30 Ml Unit Dose PO 07/22/21 12:01 Q4H PRN PRN INDIGESTION Albuterol Sulfate 2.5 mg 05/14/21 12:02 05/14/21 15:15 Proventil 2.5 Mg/3 Ml Neb IH 06/13/21 12:01 2.5 mg Q4HRT RONNI Administration Amlodipine Besylate 10 mg 05/15/21 10:00 Norvasc 5 Mg PO 06/14/21 09:59 DAILY RONNI Aspirin 81 mg 05/15/21 10:00 Ecotrin 81 Mg PO 06/14/21 09:59 DAILY RONNI Clonazepam 0.5 mg 05/14/21 14:34 Clonazepam PO 06/13/21 14:33 TID PRN PRN ANXIETY Lisinopril 10 mg 05/15/21 10:00 Zestril 10 Mg PO 06/14/21 09:59 DAILY RONNI Magnesium Hydroxide 30 - 60 ml 05/14/21 12:02 Milk Of Magnesia 30 Ml PO 06/13/21 12:01 QDP PRN CONSTIPATION Methylprednisolone Sodium Succinate 80 mg 05/14/21 18:00 05/14/21 17:18 Solu-Medrol 125 Mg IV 06/13/21 17:59 80 mg Q6HT RONNI Administration Miscellaneous Information 0 each 05/14/21 14:42 Medication Intervention 06/13/21 14:41 .RN TO CHECK WITH PT PRN Oxcarbazepine 450 mg 05/14/21 22:00 Trileptal 300 Mg Tablet PO 06/13/21 21:59 BID RONNI Senna/Docusate Sodium 2 udtab 05/14/21 12:02 Senokot-S Tablet PO 06/13/21 12:01 BID PRN PRN CONSTIPATION Discontinued Medications Generic Name Dose Route Start Last Admin Trade Name Freq PRN Reason Stop Dose Admin Albuterol/Ipratropium 3 ml 05/14/21 09:12 05/14/21 09:37 Duoneb 0.5-3 Mg/3 Ml Neb IH 05/14/21 09:13 3 ml STAT ONE Administration Albuterol/Ipratropium Confirm 05/14/21 09:25 Duoneb 0.5-3 Mg/3 Ml Neb Administered 05/14/21 09:26 Dose 3 ml IH .STK-MED ONE Aspirin 243 mg 05/14/21 06:25 05/14/21 06:34 Baby Aspirin 81 Mg Chew PO 05/14/21 06:26 243 mg STAT ONE Administration Ceftriaxone Sodium/Dextrose 2 g in 50 mls @ 100 mls/hr 05/14/21 09:19 05/14/21 10:11 Rocephin 2 Gm-D5w 50ml Bag IV 05/14/21 09:48 Infused STAT STA Infusion Azithromycin 500 mg in 250 mls @ 250 mls/hr 05/14/21 09:20 05/14/21 10:36 Zithromax 500 Mg/ 250 Ml Nacl Premix IV 05/14/21 10:19 Infused STAT STA Infusion Ceftriaxone Sodium/Dextrose Confirm 05/14/21 09:21 Rocephin 2 Gm-D5w 50ml Bag Administered 05/14/21 09:22 Dose 2 g in 50 mls @ ud IV .STK-MED ONE Azithromycin Confirm 05/14/21 09:27 Zithromax 500 Mg/ 250 Ml Nacl Premix Administered 05/14/21 09:28 Dose 500 mg in 250 mls @ ud IV .STK-MED ONE Methylprednisolone Sodium Succinate 125 mg 05/14/21 09:12 05/14/21 09:23 Solu-Medrol 125 Mg IV 05/14/21 09:13 125 mg STAT ONE Administration Methylprednisolone Sodium Succinate Confirm 05/14/21 09:21 Solu-Medrol 125 Mg Administered 05/14/21 09:22 Dose 125 mg .ROUTE .STK-MED ONE Morphine Sulfate 2 mg 05/14/21 06:25 05/14/21 06:36 Morphine Sulfate 2 Mg Inj IV 05/14/21 06:26 2 mg STAT ONE Administration Morphine Sulfate Confirm 05/14/21 06:36 Morphine Sulfate 2 Mg Inj Administered 05/14/21 06:37 Dose 2 mg .ROUTE .STK-MED ONE Nitroglycerin 0.4 mg 05/14/21 06:25 05/14/21 06:34 Nitrostat 0.4 Mg (Ed) SL 05/14/21 06:26 0.4 mg STAT ONE Administration Ondansetron HCl 4 mg 05/14/21 06:25 05/14/21 06:36 Zofran 4 Mg/2 Ml Vial IV 05/14/21 06:26 4 mg STAT ONE Administration Ondansetron HCl Confirm 05/14/21 06:35 Zofran 4 Mg/2 Ml Vial Administered 05/14/21 06:36 Dose 4 mg .ROUTE .STK-MED ONE Intake & Output (Last 24 hours) 05/12/21 05/13/21 05/14/21 05/15/21 11:59 11:59 11:59 11:59 Intake Total 840 Output Total 200 Balance 640 Weight 64.6 kg 63.8 kg Microbiology Results (Last 24 hours) 05/14/21 09:32 Blood Blood Culture Gram Stain - Pending 05/14/21 09:32 Blood Blood Culture - Pending 05/14/21 09:25 Blood Blood Culture Gram Stain - Pending 05/14/21 09:25 Blood Blood Culture - Pending Laboratory Results (Last 24 hours) 05/14/21 05/14/21 05/14/21 15:26 12:22 09:25 WBC RBC Hgb Hct MCV MCH MCHC RDW Plt Count MPV Gran % Eos # (Auto) Absolute Lymphs (auto) Absolute Monos (auto) Lymphocytes % Monocytes % Eosinophils % Basophils % Absolute Granulocytes Basophils # PT INR D-Dimer Sodium Potassium Chloride Carbon Dioxide Anion Gap BUN Creatinine Estimated GFR Glucose Calcium Total Bilirubin AST ALT Alkaline Phosphatase Troponin I < 0.012 < 0.012 < 0.012 NT-Pro-B Natriuret Pep Serum Total Protein Albumin SARS-CoV-2 (PCR) 05/14/21 05/14/21 05/14/21 09:19 05:45 05:45 WBC RBC Hgb Hct MCV MCH MCHC RDW Plt Count MPV Gran % Eos # (Auto) Absolute Lymphs (auto) Absolute Monos (auto) Lymphocytes % Monocytes % Eosinophils % Basophils % Absolute Granulocytes Basophils # PT 11.8 INR 1.00 D-Dimer 1053 H* Sodium Potassium Chloride Carbon Dioxide Anion Gap BUN Creatinine Estimated GFR Glucose Calcium Total Bilirubin AST ALT Alkaline Phosphatase Troponin I < 0.012 NT-Pro-B Natriuret Pep Serum Total Protein Albumin SARS-CoV-2 (PCR) NEGATIVE 05/14/21 05/14/21 05:45 05:45 WBC 10.6 H RBC 5.14 Hgb 15.9 Hct 48.3 H MCV 94.0 MCH 30.9 MCHC 32.9 RDW 13.1 Plt Count 344 MPV 9.2 Gran % 70.4 H Eos # (Auto) 0.05 Absolute Lymphs (auto) 2.44 Absolute Monos (auto) 0.61 Lymphocytes % 23.0 L Monocytes % 5.8 Eosinophils % 0.5 Basophils % 0.3 Absolute Granulocytes 7.46 H Basophils # 0.03 PT INR D-Dimer Sodium 131 L Potassium 3.9 Chloride 93 L Carbon Dioxide 29 Anion Gap 13.2 BUN 12 Creatinine 0.58 Estimated GFR > 60.0 Glucose 176 H Calcium 10.0 Total Bilirubin 0.30 AST 26 ALT 17 Alkaline Phosphatase 93 Troponin I NT-Pro-B Natriuret Pep 196 Serum Total Protein 7.8 Albumin 4.5 SARS-CoV-2 (PCR) Orders (Last 24 hours) Category Date Time Status Up With Assistance ROUTINE Activity 05/14/21 12:02 Active Code Status Order ROUTINE Care 05/14/21 12:02 Active EKG-ER Only STAT Care 05/14/21 06:25 Completed IV Care Q6H Care 05/14/21 12:02 Active IV Insertion STAT Care 05/14/21 06:25 Completed Implement Chest Pain Pathway ROUTINE Care 05/14/21 12:[address] in Observation ROUTINE Care 05/14/21 12:02 Active Pulse Oximetry (ED) STAT Care 05/14/21 06:25 Completed Rosa Man ROUTINE Care 05/14/21 12:02 Active Telemetry q4h Care 05/14/21 12:02 Active Weight,Daily 0600 Care 05/14/21 12:02 Active Heart-Healthy Diet Diet 05/14/21 Dinner Active CHEST 1 VIEW (PORTABLE) Stat Exams 05/14/21 06:26 Completed CHEST WITH CONTRAST [CT] Stat Exams 05/14/21 06:56 Completed BLOOD CULTURE Stat Lab 05/14/21 09:32 Received CBC AM.LAB Lab 05/15/21 04:00 Ordered CBC W DIFF Stat Lab 05/14/21 05:45 Completed CMP AM.LAB Lab 05/15/21 04:00 Ordered CMP Stat Lab 05/14/21 05:45 Completed D-DIMER QUANTITATIVE Stat Lab 05/14/21 05:45 Completed LIPID PROFILE AM.LAB Lab 05/15/21 04:00 Ordered NT PRO BNP Stat Lab 05/14/21 05:45 Completed PROTIME WITH INR Stat Lab 05/14/21 05:45 Completed SARS-CoV-2 Xpert Express Stat Lab 05/14/21 09:19 Completed TROPONIN Q3H Lab 05/14/21 05:45 Completed TROPONIN Q3H Lab 05/14/21 09:25 Completed TROPONIN Q3H Lab 05/14/21 12:22 Completed TROPONIN Q3H Lab 05/14/21 15:26 Completed TROPONIN Q3H Lab 05/14/21 18:14 Received Acetaminophen 325 mg [Tylenol 325 mg] Med 05/14/21 12:02 Active 650 mg PO Q4H PRN PRN Albuterol 2.5 mg/3 ml Neb [Proventil 2.5 mg/3 ml Neb Med 05/14/21 12:02 Active ] 2.5 mg IH Q4HRT Albuterol/Ipratropium 3ml Neb* [DUONEB 0.5-3 MG/3 ml Med 05/14/21 09:25 Discontinued Neb] 3 ml IH .STK-MED ONE Albuterol/Ipratropium 3ml Neb* [DUONEB 0.5-3 MG/3 ml Med 05/14/21 09:12 Discontinued Neb] 3 ml IH STAT ONE Amlodipine Besylate 5 mg [Norvasc 5 mg] Med 05/15/21 10:00 Active 10 mg PO DAILY Aspirin 81 gm Chew [Baby Aspirin 81 mg Chew] Med 05/14/21 06:25 Discontinued 243 mg PO STAT ONE Aspirin EC 81 mg [Ecotrin 81 mg] Med 05/15/21 10:00 Active 81 mg PO DAILY Azithromycin 500 mg/250 ml [Zithromax 500 MG/ 250 ML Med 05/14/21 09:20 Discontinued NaCl Premix] 500 mg in 250 ml IV STAT Azithromycin 500 mg/250 ml [Zithromax 500 MG/ 250 ML Med 05/14/21 09:27 Discontinued NaCl Premix] 500 mg in 250 ml IV UD Ceftriaxone 2 GM/50 ML PREMIX* [ROCEPHIN 2 Gm-D5w 50ML Med 05/14/21 09:19 Disc ontinued BAG] 2 g in 50 ml IV STAT Ceftriaxone 2 GM/50 ML PREMIX* [ROCEPHIN 2 Gm-D5w 50ML Med 05/14/21 09:21 Discontinued BAG] 2 g in 50 ml IV UD Lisinopril 10 mg [Zestril 10 MG] Med 05/15/21 10:00 Active 10 mg PO DAILY Mag Hydrox/Al Hydrox/Simeth [Maalox Es 30 ml Unit Med 05/14/21 12:02 Active Dose] 30 ml PO Q4H PRN PRN Magnesium Hydroxide 30 ml [Milk of Magnesia 30 ml Med 05/14/21 12:02 Active ] 30 - 60 ml PO QDP PRN Medication Intervention Med 05/14/21 14:42 Active 0 each MC .RN TO CHECK WITH PT PRN Methylprednis Sod Succ 125 mg* [solu-MEDROL 125 MG] Med 05/14/21 09:21 Discontinued 125 mg .ROUTE .STK-MED ONE Methylprednis Sod Succ 125 mg* [solu-MEDROL 125 MG] Med 05/14/21 09:12 Discontinued 125 mg IV STAT ONE Methylprednis Sod Succ 125 mg* [solu-MEDROL 125 MG] Med 05/14/21 18:00 Active 80 mg IV Q6HT Morphine Sulfate 2 mg Inj Med 05/14/21 06:36 Discontinued 2 mg .ROUTE .STK-MED ONE Morphine Sulfate 2 mg Inj Med 05/14/21 06:25 Discontinued 2 mg IV STAT ONE Nitroglycerin 0.4 mg (Ed) [Nitrostat 0.4 MG (ED)] Med 05/14/21 06:25 Discontinued 0.4 mg SL STAT ONE Ondansetron HCl 4 mg/2 ml [Zofran 4 MG/2 ML VIAL] Med 05/14/21 06:35 Discontinued 4 mg .ROUTE .STK-MED ONE Ondansetron HCl 4 mg/2 ml [Zofran 4 MG/2 ML VIAL] Med 05/14/21 06:25 Discontinued 4 mg IV STAT ONE Oxcarbazepine 300 mg [Trileptal 300 MG Tablet] Med 05/14/21 22:00 Active 450 mg PO BID Senna/Docusate Sodium Tab [Senokot-S Tablet] Med 05/14/21 12:02 Active 2 udtab PO BID PRN PRN clonazePAM Med 05/14/21 14:34 Active 0.5 mg PO TID PRN PRN EKG ONCE RT 05/14/21 14:25 Completed EKG ONCE RT 05/15/21 05:00 Active EKG ONCE RT 05/16/21 05:00 Active EKG ONCE RT 05/17/21 05:00 Active Oxygen NASAL CANNULA 2 lpm RT 05/14/21 17:06 Active Pulse Oximetry Q4H RT 05/14/21 12:02 Active Respiratory Therapy Assessment DAILY RT 05/14/21 09:39 Completed Respiratory Therapy Assessment DAILY RT 05/14/21 15:42 Active Transfer Order Routine Transfer 05/14/21 Completed Patient Care Notes (Last 24 hours) 05/14/21 10:46 Nursing Note by Keely Deleon Pt's oxygen dropped to high 70's to low 80's when she went to the restroom, pt was placed back on oxygen when she got back in her bed and it raised it to 96% Initialized on 05/14/21 10:46 - END OF NOTE Code(s): I24.9 - ACUTE ISCHEMIC HEART DISEASE, UNSPECIFIED (2) Chest pain Current Visit: Yes Status: Acute Qualifiers: Chest pain type: precordial pain Qualified Code(s): R07.2 - Precordial pain Code(s): R07.9 - CHEST PAIN, UNSPECIFIED (3) Elevated d-dimer Current Visit: Yes Status: Acute Code(s): R79.89 - OTHER SPECIFIED ABNORMAL FINDINGS OF BLOOD CHEMISTRY
[2021-05-14] MEDS: Trileptal 300 MG Tablet PO SCH (21:16)
[2021-05-14] MEDS: clonazePAM PO PRN ×2 (21:17→23:31)
[2021-05-15] MEDS: PROVENTIL 2.5 MG/3 ML NEB IH SCH ×3 (02:35→10:32)
[2021-05-15 05:12] LABS: Hematocrit 44.6 % (35-47); Hemoglobin 14.2 gm/dl (12.0-16.0); Mean Cell Volume 95.7 fl (78-100); Mean Corpuscular Hemoglobin 30.5 pg (26-32); Mean Corpuscular Hgb Concent. 31.8 g/dl (32-36); Mean Platelet Volume 8.8 fl (7.5-11.0); Platelet Count 318 K/mm3 (150-450); Red Blood Count 4.66 M/mm3 (4.1-5.4); Red Cell Distribution Width 12.9 % (11.5-14.0); White Blood Count 19.7 K/mm3 (4.0-10.5)
[2021-05-15] MEDS: solu-MEDROL 125 MG IV SCH ×2 (05:25→12:18)
[2021-05-15 06:08] LABS: ALBUMIN 4.2 g/dL (3.5-5.0); ALKALINE PHOSPHATASE 83 U/L (38-126); BLOOD UREA NITROGEN 14 mg/dL (7-17); CHLORIDE 95 mmol/L (98-107); Calcium 9.2 mg/dL (8.4-10.2); Carbon Dioxide 24 mmol/L (22-30); Cholesterol 164 mg/dL (50-200); Creatinine 1 0.49 mg/dL (0.52-1.04); EST GLOMERULAR FILTRATION RATE > 60.0 ML/MIN; Glucose 279 mg/dL (74-106); HDL CHOLESTEROL 58 mg/dL (40-60); LDL, DIRECT 82 mg/dL (30-100); Potassium 4.1 mmol/L (3.5-5.1); Risk Ratio 2.8; SGOT/AST 25 U/L (14-36); SGPT/ALT 18 U/L (0-35); SODIUM 131 mmol/L (137-145); TRIGLYCERIDE 48 mg/dL (30-150); Total Protein 7.1 g/dL (6.3-8.2)
[2021-05-15] MEDS: Trileptal 300 MG Tablet PO SCH (08:59)
[2021-05-15] MEDS: clonazePAM PO PRN (09:04)
[2021-05-15] MEDS ORDERED: ROCEPHIN 1 Gm-D5w 50 ml Bag** 1 G/50 ML IVPB IV SCH (10:00)
[2021-05-15] MEDS ORDERED: Zestril 10 MG PO SCH (10:00)
[2021-05-15] MEDS ORDERED: ECOTRIN 81 MG PO SCH (10:00)
[2021-05-15] MEDS ORDERED: Zithromax 500 MG/ 250 ML NaCl Premix 500 MG/250 ML IVPB IV SCH (10:00)
[2021-05-15] MEDS ORDERED: NON-FORMULARY ITEM (Amlodipine Besylate [Amlodipine Besylate] 10 MG) PO SCH (10:00)
[2021-05-15] MEDS ORDERED: BABY ASPIRIN 81 MG CHEW PO SCH (10:00)
[2021-05-15] MEDS ORDERED: NORVASC 5 MG PO SCH (10:00)
[2021-05-15 12:48] VITALS: BP 122/61; PULSE 82; O2SAT 92
--- NOTE | 2021-05-20 20:33 | PCM.DS ---
Discharge Summary Date of Admission: 05/14/21 11:57 Admitting Physician: HARRISON CABRERA Primary Care Provider: FLORENCIA MINOR Allergies Allergies No Known Drug Allergies Allergy (Verified 05/14/21 05:58) Hospital Summary - Hospital Course Hospital Course: Chief Complaint Diagnosis chest pain for 1 day Allergies Allergy/AdvReac Type Severity Reaction Status Date / Time No Known Drug Allergies Allergy Verified 05/14/21 05:58 Home Medications Medication Instructions Recorded Confirmed Last Taken Type Amlodipine Besylate 10 mg PO DAILY 05/14/21 05/14/21 05/14/21 05:00 History Aspirin 81 gm Chew [Baby 81 mg PO DAILY 05/14/21 05/14/21 05/14/21 05:00 History Aspirin 81 mg Chew] Melatonin/Pyridoxine [Melatonin 5 5 mg PO HS PRN PRN 05/14/21 05/14/21 Unknown History mg Tablet] OXcarbazepine [Trileptal] 450 mg PO BID 05/14/21 05/14/21 05/14/21 05:00 History clonazePAM [Klonopin] 0.5 mg PO TID PRN PRN 05/14/21 05/14/21 05/10/21 06:00 History lisinopriL [Lisinopril] 10 mg PO DAILY 05/14/21 05/14/21 05/14/21 05:00 History Albuterol Common Canister 2 puff IH Q4H PRN #1 puff 05/15/21 Unknown Rx [Ventolin Common Canister] Azithromycin 1 gm PO UD #1 packet 05/15/21 Unknown Rx Fluticasone Propion/Salmeterol 1 each IH BID #1 blst.w.dev 05/15/21 Unknown Rx [Fluticasone-Salmeterol 250-50] Methylprednisolone Packet 4 mg PO UD #1 packet 05/15/21 Unknown Rx [Medrol Dosepack] Current Medications Discontinued Medications Generic Name Dose Route Start Last Admin Trade Name Freq PRN Reason Stop Dose Admin Acetaminophen 650 mg 05/14/21 12:02 Tylenol 325 Mg PO 06/13/21 12:01 Q4H PRN PRN PAIN AND/OR FEVER Al Hydrox/Mg Hydrox/Simethicone 30 ml 05/14/21 12:02 Maalox Es 30 Ml Unit Dose PO 06/13/21 12:01 Q4H PRN PRN INDIGESTION Albuterol Sulfate 2.5 mg 05/14/21 12:02 05/15/21 10:32 Proventil 2.5 Mg/3 Ml Neb IH 06/13/21 12:01 2.5 mg Q4HRT RONNI Administration Albuterol/Ipratropium 3 ml 05/14/21 09:12 05/14/21 09:37 Duoneb 0.5-3 Mg/3 Ml Neb IH 05/14/21 09:13 3 ml STAT ONE Administration Albuterol/Ipratropium Confirm 05/14/21 09:25 Duoneb 0.5-3 Mg/3 Ml Neb Administered 05/14/21 09:26 Dose 3 ml IH .STK-MED ONE Amlodipine Besylate 10 mg 05/15/21 10:00 05/15/21 08:59 Norvasc 5 Mg PO 06/14/21 09:59 10 mg DAILY RONNI Administration Aspirin 243 mg 05/14/21 06:25 05/14/21 06:34 Baby Aspirin 81 Mg Chew PO 05/14/21 06:26 243 mg STAT ONE Administration Aspirin 81 mg 05/15/21 10:00 05/15/21 08:58 Ecotrin 81 Mg PO 06/14/21 09:59 81 mg DAILY RONNI Administration Clonazepam 0.5 mg 05/14/21 14:34 05/15/21 09:04 Clonazepam PO 06/13/21 14:33 0.5 mg TID PRN PRN Administration ANXIETY Ceftriaxone Sodium/Dextrose 2 g in 50 mls @ 100 mls/hr 05/14/21 09:19 05/14/21 10:11 Rocephin 2 Gm-D5w 50ml Bag IV 05/14/21 09:48 Infused STAT STA Infusion Azithromycin 500 mg in 250 mls @ 250 mls/hr 05/14/21 09:20 05/14/21 10:36 Zithromax 500 Mg/ 250 Ml Nacl Premix IV 05/14/21 10:19 Infused STAT STA Infusion Ceftriaxone Sodium/Dextrose Confirm 05/14/21 09:21 Rocephin 2 Gm-D5w 50ml Bag Administered 05/14/21 09:22 Dose 2 g in 50 mls @ ud IV .STK-MED ONE Azithromycin Confirm 05/14/21 09:27 Zithromax 500 Mg/ 250 Ml Nacl Premix Administered 05/14/21 09:28 Dose 500 mg in 250 mls @ ud IV .STK-MED ONE Ceftriaxone Sodium/Dextrose 1 g in 50 mls @ 100 mls/hr 05/15/21 10:00 05/15/21 09:29 Rocephin 1 Gm-D5w 50 Ml Bag IV 05/18/21 09:59 100 mls/hr Q24H10 RONNI Administration Azithromycin 500 mg in 250 mls @ 250 mls/hr 05/15/21 10:00 05/15/21 10:20 Zithromax 500 Mg/ 250 Ml Nacl Premix IV 06/14/21 09:59 250 mls/hr Q24H10 RONNI Administration Lisinopril 10 mg 05/15/21 10:00 05/15/21 08:59 Zestril 10 Mg PO 06/14/21 09:59 10 mg DAILY RONNI Administration Magnesium Hydroxide 30 - 60 ml 05/14/21 12:02 Milk Of Magnesia 30 Ml PO 06/13/21 12:01 QDP PRN CONSTIPATION Methylprednisolone Sodium Succinate 125 mg 05/14/21 09:12 05/14/21 09:23 Solu-Medrol 125 Mg IV 05/14/21 09:13 125 mg STAT ONE Administration Methylprednisolone Sodium Succinate Confirm 05/14/21 09:21 Solu-Medrol 125 Mg Administered 05/14/21 09:22 Dose 125 mg .ROUTE .STK-MED ONE Methylprednisolone Sodium Succinate 80 mg 05/14/21 18:00 05/15/21 12:18 Solu-Medrol 125 Mg IV 06/13/21 17:59 80 mg Q6HT RONNI Administration Miscellaneous Information 0 each 05/14/21 14:42 Medication Intervention 06/13/21 14:41 .RN TO CHECK WITH PT PRN Morphine Sulfate 2 mg 05/14/21 06:25 05/14/21 06:36 Morphine Sulfate 2 Mg Inj IV 05/14/21 06:26 2 mg STAT ONE Administration Morphine Sulfate Confirm 05/14/21 06:36 Morphine Sulfate 2 Mg Inj Administered 05/14/21 06:37 Dose 2 mg .ROUTE .STK-MED ONE Nitroglycerin 0.4 mg 05/14/21 06:25 05/14/21 06:34 Nitrostat 0.4 Mg (Ed) SL 05/14/21 06:26 0.4 mg STAT ONE Administration Ondansetron HCl 4 mg 05/14/21 06:25 05/14/21 06:36 Zofran 4 Mg/2 Ml Vial IV 05/14/21 06:26 4 mg STAT ONE Administration Ondansetron HCl Confirm 05/14/21 06:35 Zofran 4 Mg/2 Ml Vial Administered 05/14/21 06:36 Dose 4 mg .ROUTE .STK-MED ONE Oxcarbazepine 450 mg 05/14/21 22:00 05/15/21 08:59 Trileptal 300 Mg Tablet PO 06/13/21 21:59 450 mg BID RONNI Administration Senna/Docusate Sodium 2 udtab 05/14/21 12:02 Senokot-S Tablet PO 06/13/21 12:01 BID PRN PRN CONSTIPATION - Vitals & Intake/Output Vital Signs: Vital Signs Temperature 98.6 F 05/15/21 12:00 Pulse Rate 82 05/15/21 12:00 Respiratory Rate 20 05/15/21 12:00 Blood Pressure 122/61 05/15/21 12:00 O2 Sat by Pulse Oximetry 92 L 05/15/21 12:00 - Lab Result Diagrams: 05/15/21 04:28 05/15/21 04:28 Micro Results-Entire Visit: Microbiology 05/14/21 09:32 Blood Culture Gram Stain - Final Blood Not Reportable Blood Culture - Final NO GROWTH 05/14/21 09:25 Blood Culture Gram Stain - Final Blood Not Reportable Blood Culture - Final NO GROWTH - Procedures and Test Procedures and Tests throughout Hospitalization: Therapy Orders & Screens 05/14/21 09:39 Respiratory Therapy Assessment DAILY Comment: 05/14/21 14:25 EKG ONCE Comment: Diagnosis: ACS, Chest pain 05/14/21 15:42 Respiratory Therapy Assessment DAILY Comment: Diagnosis: ACS, Chest pain 05/14/21 17:06 Oxygen NASAL CANNULA 2 lpm Comment: Diagnosis: ACS, Chest pain 05/14/21 22:27 Flutter Therapy UD Comment: Diagnosis: chest pain for 1 day 05/15/21 05:00 EKG ONCE Comment: Diagnosis: ACS, Chest pain 05/16/21 05:00 EKG ONCE Comment: Diagnosis: ACS, Chest pain 05/17/21 05:00 EKG ONCE Comment: Diagnosis: ACS, Chest pain Discharge Exam General Appearance: no apparent distress, alert Neurologic Exam: alert, oriented x 3, cooperative, normal mood/affect, nml cere bellar function, sensation nml, No motor deficits Eye Exam: PERRL, EOMI, eyes nml inspection Ears, Nose, Throat Exam: normal ENT inspection, pharynx normal, moist mucous membranes Neck Exam: normal inspection, non-tender, supple, full range of motion Respiratory Exam: normal breath sounds, lungs clear, No respiratory distress Cardiovascular Exam: regular rate/rhythm, normal heart sounds Gastrointestinal/Abdomen Exam: soft, No tenderness, No mass Pelvic Exam: deferred Rectal Exam: deferred Back Exam: normal inspection, normal range of motion, No CVA tenderness, No vertebral tenderness Extremity Exam: normal inspection, normal range of motion Skin Exam: normal color, warm, dry Final Diagnosis/Problem List - Final Discharge Diagnosis/Problem (1) ACS (acute coronary syndrome) Status: Resolved Code(s): I24.9 - ACUTE ISCHEMIC HEART DISEASE, UNSPECIFIED (2) Chest pain Status: Resolved Code(s): R07.9 - CHEST PAIN, UNSPECIFIED (3) Elevated d-dimer Status: Resolved Code(s): R79.89 - OTHER SPECIFIED ABNORMAL FINDINGS OF BLOOD CHEMISTRY - Discharge Discharge Date: 05/15/21 Disposition: Home, Self-Care Condition: Stable Prescriptions: New Azithromycin 1 gm PO UD #1 packet Methylprednisolone Packet [Medrol Dosepack] 4 mg PO UD #1 packet Fluticasone Propion/Salmeterol [Fluticasone-Salmeterol 250-50] 1 each IH BID #1 blst.w.dev Albuterol Common Canister [Ventolin Common Canister] 2 puff IH Q4H PRN #1 puff PRN Reason: Shortness Of Breath Continue lisinopriL [Lisinopril] 10 mg PO DAILY clonazePAM [Klonopin] 0.5 mg PO TID PRN PRN PRN Reason: Anxiety OXcarbazepine [Trileptal] 450 mg PO BID Aspirin 81 gm Chew [Baby Aspirin 81 mg Chew] 81 mg PO DAILY Amlodipine Besylate 10 mg PO DAILY Melatonin/Pyridoxine [Melatonin 5 mg Tablet] 5 mg PO HS PRN PRN PRN Reason: sleep Instructions: Oxygen Therapy, Adult (DC), Chest Pain (DC), Exacerbation of COPD (DC) Additional Instructions: PLEASE CALL [facility] ONCE YOU GET HOME, THEY WILL COME TO YOUR HOME AND SET UP YOUR OXYGEN FOR YOU. THEIR PHONE NUMBER IS [phone] WE SET YOU UP AN APPOINTMENT WITH TRACY MALDONADO AT THIS BUSINESS OFFICE FOR Thursday05/20/21 AT 10AM TO FINISH YOUR FULL INSURANCE APPLICATION. IF YOU NEED TO RESCHEDULE, YOU CAN CALL THE HOSPITAL AT [phone] Follow up with: SPEEDY GIL [CONSULTING PHYSICIAN] - 06/27/21 3:00 pm HARRISON CABRERA MD [ACTIVE STAFF] - 05/23/21 10:45 am (APPOINTMENT AT [facility]) Forms: Discharge Instructions, Work/School Release Form
== END 2021-05-15 13:58 | disposition home or self-care (01) ==
LOC: ED 05:40 → MED SURG 11:57
PROVIDERS: ADMIT General Practice; ATTEND General Practice
DX: R07.9 Chest pain, unspecified (principal); R06.02 Shortness of breath; R59.1 Generalized enlarged lymph nodes; J44.1 Chronic obstructive pulmonary disease with (acute) exacerbation; I24.9 Acute ischemic heart disease, unspecified; R79.89 Other specified abnormal findings of blood chemistry; D72.829 Elevated white blood cell count, unspecified; R09.02 Hypoxemia; R73.9 Hyperglycemia, unspecified; P74.22 Hyponatremia of newborn; Z79.899 Other long term (current) drug therapy
CPT/HCPCS: 36000; 36415; 71045; 71260; 80053; 80061; 83721; 83880; 84484; 85025; 85027; 85379; 85610; 87040; 93005; 93268; 94640; 94667; 94760; 96365; 96367; 96374; 96375; 99285; G0378; U0003; J0456; J0696; J2270; J2405; J2930; J7609; A9270-GY

== ENCOUNTER 2023-11-07 11:07 | Emergency (ER) | payer OTHER ==
[2023-11-07 11:40] VITALS: BP 119/69; PULSE 78; RESP 18; TEMP 97.8; O2SAT 95
[2023-11-07] MEDS ORDERED: NORCO 5/325 MG PO ONE (12:01)
[2023-11-07] MEDS ORDERED: NORCO 5/325 MG ONE (12:10)
--- NOTE | 2023-11-07 12:23 | ERPHSYRPT ---
- History of Present Illness Time Seen by Provider: 11/07/23 11:34 Source: patient Exam Limitations: no limitations Patient Subjective Stated Complaint: Left foot pain Triage Nursing Assessment: Patient brought into ED per w/c and transferred to be d per self. Patient A+O X3. Patient's skin pink, warm and dry. Patient complains of left foot injury. Patient states last night she tripped and fell causing left foot to be underneath her. Patient complains of pain to left foot 09/01. Left foot noted to be swollen and bruised. Pulse noted. Physician History: 63 years old female presented in the ER with chief complaint of left foot injury. Patient reports she tripped on something in the middle of the night last night and bent her foot backward. She has a swelling of the distal foot with bruising. Moderate to severe sharp pain making it difficult to have any weightbearing. Pain is reproducible with palpation, weightbearing and movements of toes. No numbness or tingling in the toes. No injury anywhere else. Allergies/Adverse Reactions: No Known Drug Allergies Allergy (Verified 11/07/23 11:32) Home Medications: Amlodipine Besylate 10 mg PO DAILY 05/14/21 [History] Aspirin 81 gm Chew [Baby Aspirin 81 mg Chew] 81 mg PO DAILY 05/14/21 [History] lisinopriL [Lisinopril] 10 mg PO DAILY 05/14/21 [History] Ascorbic Acid [Vitamin C] 1,000 mg PO DAILY 11/03/23 [History] Cyanocobalamin (Vitamin B-12) [Vitamin B12] 2,500 mcg PO DAILY 11/03/23 [History] Quetiapine Fumarate [Quetiapine Fumarate ER] 50 mg PO DAILY 11/03/23 [History] Hx Tetanus, Diphtheria Vaccination/Date Given: Yes Hx Influenza Vaccination/Date Given: No Hx Pneumococcal Vaccination/Date Given: No Immunizations Up to Date: Yes Travel Risk - International Travel Have you traveled outside of the country in past 3 weeks: No - Coronavirus Screening Are you exhibiting any of the following symptoms?: No Close contact with a COVID-19 positive Pt in past 14-21 Days: No - Vaccine Status Have you recieved a Covid-19 vaccination: No - Vaccination Dates Comment: does not want covid vaccine - Review of Systems Constitutional: No Symptoms Ears, Nose, & Throat: No Symptoms Respiratory: No Symptoms Cardiac: No Symptoms Genitourinary Symptoms: No Symptoms Musculoskeletal: Fall, Injury, Joint Redness, Joint Swelling Skin: No Symptoms Neurological: No Symptoms Endocrine: No Symptoms Hematologic/Lymphatic: No Symptoms Immunological/Allergic: No Symptoms - Past Medical History Pertinent Past Medical History: Yes Neurological History: No Pertinent History ENT History: No Pertinent History Cardiac History: Hypertension Respiratory History: COPD, Pneumonia Endocrine Medical History: No Pertinent History Musculoskeletal History: No Pertinent History GI Medical History: No Pertinent History History: No Pertinent History Psycho-Social History: Anxiety, Depression Female Reproductive Disorders: No Pertinent History - Past Surgical History Past Surgical History: No Neuro Surgical History: No Pertinent History Cardiac: No Pertinent History Respiratory: No Pertinent History Gastrointestinal: No Pertinent History Genitourinary: No Pertinent History Musculoskeletal: No Pertinent History Female Surgical History: No Pertinent History - Social History Smoking Status: Current every day smoker How long have you smoked: 40+ yrs Exposure to second hand smoke: No Drug Use: none Patient Lives Alone: No - Nursing Vital Signs Nursing Vital Signs: Initial Vital Signs Temperature 97.8 F 11/07/23 11:33 Pulse Rate 78 11/07/23 11:33 Respiratory Rate 18 11/07/23 11:33 Blood Pressure 119/69 11/07/23 11:33 O2 Sat by Pulse Oximetry 95 11/07/23 11:33 Pain Scale Pain Intensity 10 - Physical Exam General Appearance: no apparent distress Eyes, Ears, Nose, Throat Exam: normal ENT inspection Neck Exam: normal inspection, full range of motion Cardiovascular/Respiratory Exam: normal breath sounds, regular rate/rhythm Ankle Exam: bilateral ankle: non-tender, normal inspection, normal range of motion, no evidence of injury Foot Exam: right foot: non-tender, normal inspection, normal range of motion, no evidence of injury, left foot: bone tenderness (Distal foot.), limited range of motion, pain, soft tissue tenderness, swelling Neuro/Tendon Exam: normal sensation, normal motor functions Mental Status Exam: alert, oriented x 3, cooperative Skin Exam: normal color SpO2 Interpretation: normal SpO2: 95 O2 Delivery: Room Air Ordered Tests: Active Orders 24 hr Category Date Time Status FOOT (MINIMUM 3 VIEWS) Stat Exams 11/07/23 11:31 Taken Medication Summary Discontinued Medications Generic Name Dose Route Start Last Admin Trade Name Freq PRN Reason Stop Dose Admin Hydrocodone Bitart/Acetaminophen 2 tab 11/07/23 12:01 11/07/23 12:13 Hydrocodone/Apap 5/325 1 Tab Tablet PO 11/07/23 12:02 2 tab STAT ONE Administration Hydrocodone Bitart/Acetaminophen Confirm 11/07/23 12:10 Hydrocodone/Apap 5/325 1 Tab Tablet Administered 11/07/23 12:11 Dose 2 tab .ROUTE .STK-MED ONE - Progress Progress: improved, pain not gone completely Progress Note: 11/07/23 12:26 63-year-old is evaluated in the ER for left foot injury after she accidentally tripped last night with swelling of the distal foot. She is given symptomatic treatment for pain. X-rays showed fracture distal third fourth and fifth metatarsal. Placed in long boot, crutches, nonweightbearing and pain medication with outpatient podiatry follow-up. Discussed signs symptoms of worsening needing return to ER which she seems understanding. Stable for discharge. Counseled pt/family regarding: diagnosis, need for follow-up, rad results Medical Desision Making - Diagnostic Testing Diagnostic test were ordered, analyzed, and reviewed by me: Yes Radiological Interpretation: Interpreted by me, Reviewed by me - Risk of complications The pt has a mod risk of morbidity or mortality based on: Need for prescription drug management - Departure Departure Disposition: Home Clinical Impression: Foot fracture, left Condition: Stable Critical Care Time: No Referrals: FLORENCIA MINOR [employer] COACH OPERATOR [Primary Care Provider] - Follow up with PCP 2 days KATHY HALE DPM [ACTIVE STAFF] - Follow up/PCP as directed (Thursday morning for reevaluation) Instructions: Foot Fracture (DC) Additional Instructions: Nonweightbearing, intermittent ice application. Follow-up with podiatry for reevaluation. Return to ER for worsening pain swelling etc. Prescriptions: Hydrocodone/Acetaminophen [Hydrocodone-Acetamin 5-325 mg] 1 tab PO Q6HPRN PRN 3 Days #10 tablet MDD 4 PRN Reason: Pain
--- NOTE | 2023-11-07 19:58 | XRAY ---
Indication: Pain. Comparison: None 3 nonweightbearing views left foot demonstrates nondisplaced healing 2nd-5th metatarsal head fractures with soft tissue swelling and nondisplaced acute fracture shaft 5th metatarsal. Elsewhere osteopenia and mild 1st MTP degenerative changes.
== END 2023-11-07 12:58 | disposition home or self-care (01) ==
LOC: ED 11:07
DX: S92.342A Displaced fracture of fourth metatarsal bone, left foot, initial encounter for closed fracture (principal); S92.352A Displaced fracture of fifth metatarsal bone, left foot, initial encounter for closed fracture; W18.40XA Slipping, tripping and stumbling without falling, unspecified, initial encounter; I10 Essential (primary) hypertension; Z79.891 Long term (current) use of opiate analgesic; Z79.899 Other long term (current) drug therapy; Z28.310 Unvaccinated for COVID-19; Z72.0 Tobacco use
CPT/HCPCS: 73630; 99283; L4386; A9270-GY